=== PATIENT | female | born 1995 ===

== ENCOUNTER → 2017-07-04 | Emergency (ER) | payer OTHER ==
[~2017-07-04] VITALS: Ht 167.6 cm; Wt 65.8 kg
[~2017-07-04] MED LIST: CIPRO500 MG PO; KETO10TA2 PO
== END | disposition home or self-care (01) ==
LOC: ER 09:28
DX: N39.0 Urinary tract infection, site not specified (principal)

== ENCOUNTER 2019-01-03 19:51 | Outpatient (CLI) | payer OTHER ==
[2019-01-03] MEDS ORDERED: PRENATAL TABLE1 EAC1 PO (20:55)
== END 2019-01-04 10:32 | disposition home or self-care (01) ==
LOC: OBS/DEL 19:51
DX: O47.1 False labor at or after 37 completed weeks of gestation (principal); Z34.03 Encounter for supervision of normal first pregnancy, third trimester

== ENCOUNTER 2019-01-14 09:59 | Inpatient (IN) | payer OTHER ==
[~2019-01-14] VITALS: Ht 167.6 cm; Wt 161.0 kg
[~2019-01-14 09:59] MED LIST changes: +PRENATAL TABLE1 EAC1 PO
== END 2019-01-16 15:59 | disposition home or self-care (01) | DRG 807 ==
LOC: OBS/DEL 09:59 → LDR 11:02 → OB/GYN 11:02 → LDR 12:44 → OB/GYN 16:45
PROVIDERS: ADMIT Obstetrics & Gynecology
PROC: 10E0XZZ Delivery of Products of Conception, External Approach (ICD-10-PCS; principal; 2019-01-14)
PROC: 3E033VJ Introduction of Other Hormone into Peripheral Vein, Percutaneous Approach (ICD-10-PCS; 2019-01-14)
PROC: 4A1HXCZ Monitoring of Products of Conception, Cardiac Rate, External Approach (ICD-10-PCS; 2019-01-14)
PROC: 0HQ9XZZ Repair Perineum Skin, External Approach (ICD-10-PCS; 2019-01-14)
PROC: 0UQGXZZ Repair Vagina, External Approach (ICD-10-PCS; 2019-01-14)
PROC: 4A033R1 Measurement of Arterial Saturation, Peripheral, Percutaneous Approach (ICD-10-PCS; 2019-01-14)
DX: O70.0 First degree perineal laceration during delivery (principal); Z37.0 Single live birth; Z3A.39 39 weeks gestation of pregnancy